=== PATIENT | male | born 1935 | race Asian ===

== ENCOUNTER 2019-03-31 07:02 | Emergency (ER) | payer OTHER, SELFPAY ==
[2019-03-31 07:10] VITALS: BP 121/66; PULSE 71; RESP 18; TEMP 36.2; O2SAT 99; BMI 20.7
--- NOTE | 2019-03-31 07:23 | ED.GENADULT ---
HPI - General Adult General Chief complaint: Syncope Stated complaint: syncope Time Seen by Provider: 03/31/19 07:09 Source: patient and family Mode of arrival: EMS Limitations: no limitations History of Present Illness HPI narrative: 83-year-old male. hypertensive. Here with his . Brought in by EMS for a syncopal episode this morning. Patient's states that this morning the patient was sitting. He stated that he felt like his blood sugar was low and needed to eat something. His made both of them some oatmeal. While he was eating his own meal patient's stated that he looked like he was unconscious. He did not fall out of his chair. He was still holding the cup that held the oatmeal. patient's stated that this happen 1 time prior last year. She stated that the determination of this was a low blood pressure. At that time he was switched from atenolol to lisinopril. No prior episodes over the past year until this morning. The patient states that he did remember the events this morning. He stated that he felt very groggy he denied headache, chest pain, palpitations or shortness of breath. He stated that he does remember sitting holding the oatmeal and the next thing he remembers was the paramedics in the house. At the time evaluation patient states that he feels fine. Related Data Allergies Allergy/AdvReac Type Severity Reaction Status Date / Time No Known Drug Allergies Allergy Verified 03/31/19 08:13 Review of Systems Constitutional Constitutional: Denies fever(s) and Denies headache(s) ENT Ears, Nose, Mouth, and Throat: Denies vertigo, Denies dizziness, Denies headache(s), Denies sinus pressure and Denies sore throat Cardiovascular Cardiovascular: Denies chest pain, Reports syncope, Denies rapid heart rate, Denies leg edema, Denies palpitations, Denies dyspnea and Denies dyspnea on exertion Respiratory Respiratory: Denies cough, Denies dyspnea and Denies dyspnea on exertion Gastrointestinal Gastrointestinal: Denies abdominal pain, Denies nausea and Denies vomiting Genitourinary Genitourinary: Denies dysuria Musculoskeletal Musculoskeletal: Denies myalgias and Denies arthralgias Integumentary/Breasts Skin/Breast: Denies lesions and Denies rash Neurologic Neurologic: Denies behavioral changes, Denies vertigo, Denies dizziness, Reports syncope and Denies headache(s) Psychiatric Psychiatric: Denies behavioral changes Endocrine Endocrine: Denies palpitations Hematologic/Lymphatic Hematologic/Lymphatic: Denies easy bleeding and Denies easy bruising Patient History Medical History Diabetes (Acute) Hypertension (Acute) Social History lives independently: Yes Smoking Status: Former smoker Exam Initial Vital Signs Initial Vital Signs: Vital Signs Temperature 97.1 F L 03/31/19 07:10 Pulse Rate 71 03/31/19 07:10 Respiratory Rate 18 03/31/19 07:10 Blood Pressure 121/66 03/31/19 07:10 Pulse Oximetry 99 03/31/19 07:10 Const General: cooperative and comfortable Limitations: mental status not altered HENMT Head: normal to inspection and normocephalic Resp Effort & Inspection: normal respiratory effort Auscultation: clear to auscultation bilaterally Cardio Rate: regular rate Rhythm: regular rhythm Pulses: radial pulses present GI Inspection: non-distended Palpation: soft Skin Lesions: no lesions Rashes: no rashes Neuro General: alert, awake and oriented x3 Cognition: normal cognition Speech: speech normal Extrem General: normal to inspection and capillary refill normal Psych Appearance: grossly normal and well kempt Scores GCS [place] coma scale eye opening: Spontaneous Luiza coma scale verbal response: Orientated [place] coma scale motor response: Obey commands [place] coma scale total score: 15 Course Orders Ordered: ED Orders 03/31/19 07:10 EKG-12 Lead Stat 03/31/19 08:05 CT head/brain wo con Stat 03/31/19 08:36 Complete Blood Count AUTO DIFF Stat Comprehensive Metabolic Panel Stat Ethanol (ETOH) Stat Lipase Stat Partial Thromboplastin Time Stat Procalcitonin Stat Prothrombin Time INR Stat Troponin I Stat Vital Signs Vital signs: Vital Signs - 8 hr 03/31/19 07:10 03/31/19 09:44 Temperature 97.1 F L Pulse Rate 71 Respiratory Rate 18 16 Blood Pressure 121/66 Pulse Oximetry 99 Medical Decision Making Lab Data Lab results reviewed: Yes I reviewed the patient's lab results. Result diagrams: 03/31/19 08:36 03/31/19 08:36 Labs: Lab Results 03/31/19 03/31/19 03/31/19 Range/Units 08:36 08:36 08:36 WBC 6.5 (4.5-11.0) X10^3/uL RBC 3.92 L (4.5-5.9) X10^6/uL Hgb 12.5 L (13.5-17.5) g/dL Hct 36.8 L (41-53) % MCV 93.8 (80-100) fL MCH 31.8 (26-34) PG MCHC 33.9 (30-36) % RDW 13.3 (11.6-14.8) % Plt Count 112 L (150-400) X10^3/uL Neut % (Auto) 78.2 H (50-75) % Lymph % (Auto) 10.1 L (25-40) % [place] % (Auto) 7.5 (3-14) % Eos % (Auto) 3.8 (2-4) % Baso % (Auto) 0.4 (0-2) % Neut # (Auto) 5100 (2495-4228) /uL Lymph # (Auto) 700 L (6130-6611) /uL [place] # (Auto) 500 (0-900) /uL Eos # (Auto) 200 (0-450) /uL Baso # (Auto) 0 (0-100) /uL PT 12.5 (10.1-12.7) SECONDS INR 1.1 (0.9-1.3) APTT 32 (26.4-36.2) SECONDS Sodium 140 (137-145) mmol/L Potassium 4.0 (3.4-5.1) mmol/L Chloride 106 (98-107) mmol/L Carbon Dioxide 26 (22-32) mmol/L BUN 23 H (9-20) mg/dL Creatinine 1.30 H (0.66-1.25) mg/dL Estimated GFR 53.0 L (>60) mL/min BUN/Creatinine Ratio 17.7 (6-22) Glucose 153 H (80-110) mg/dL Calcium 9.0 (8.4-10.2) mg/dL Total Bilirubin 0.3 (0.2-1.3) mg/dL AST 22 (17-59) IU/L ALT 16 (<50) IU/L Alkaline Phosphatase 70 (38-126) U/L Troponin I < 0.012 (0.01-0.034) ng/mL Total Protein 6.8 (6.3-8.2) g/dL Albumin 3.8 (3.5-5.0) g/dL Globulin 3.0 (1.7-4.1) g/dL Albumin/Globulin Ratio 1.3 (1.0-2.8) Lipase 116 (23-300) U/L Ethyl Alcohol < 10 ( - 10) mg/dL Imaging Data CT scan - head: Radiologist's Impression: [place] [address] CT Scan Report Signed Patient: Lauren VidaloMR#: [id number] : [id number]:[id number] Age/Sex: 83 / MDate of Service: 03/31/19 Loc: ED Accession Number: [id number] Procedure: CT head/brain wo con Ordering Provider: Mejia Villagran D.O. PROCEDURE: CT HEAD/BRAIN WO CON INDICATIONS: syncope TECHNIQUE: Noncontrast 4.5 mm thick angled axial sections acquired from the foramen magnum to the vertex, with coronal and sagittal reformats. For radiation dose reduction, the following was used: automated exposure control, adjustment of mA and/or kV according to patient size. COMPARISON: None. FINDINGS: Image quality: Excellent. CSF spaces: Basal cisterns are patent. No extra-axial fluid collections. The ventricles are symmetric in size and shape. Brain: No intracranial bleeds or masses. There is cerebral volume loss for age, with resultant ventricular and sulcal prominence. There are periventricular and deep white matter chronic small vessel ischemic changes. There is intracranial internal carotid artery and vertebral artery atherosclerosis. Skull and face: Calvarium and visualized facial bones appear intact, without suspicious lesions. Sinuses: Mild mucosal thickening noted in the right maxillary sinus. The mastoids are clear. IMPRESSION: No acute intracranial disease process. Dictated by: Erma Atkinson MD, PhD on 03/31/2019 at 8:18 Approved by: Erma Atkinson MD, PhD on 03/31/2019 at 8:19 ECG Data Attestation: I personally reviewed and interpreted this ECG as follows: Prior ECG tracings: not available for review Interpretation: Sinus rhythm Ventricular rate is 75 Normal axis Normal QRS Normal QTC Nonspecific ST T wave changes MDM Narrative Medical decision making narrative: Patient's labs are unremarkable. Nonspecific changes on the EKG. Head CT unremarkable. He ambulated around the emergency department without any problems. Unsure the exact etiology of his symptoms. His presentation is not consistent with CVA. Not consistent with TIA. Not consistent with seizure. Did consider arrhythmia however EKG is not supportive of this. No signs of intracranial hemorrhage. Potentially could have been a hypotension episode however this seems to have resolved if this was the cause. Patient's blood sugar was also unremarkable. I did discuss this with the patient and family at bedside. Informed him that he should continue to take his medications as directed. Informed him that he should contact his primary provider for follow-up. He was given return precautions. They all expressed understanding and agreement. Discharge Plan Departure Patient Disposition: Home Clinical Impression: Syncope Qualifiers: Syncope type: unspecified Qualified Code(s): R55 - Syncope and collapse Instructions: DI for Syncope in Adults (Fainting) Activity Restrictions/Additional Instructions: Continue to take all of your medications as directed. I do recommend that either today or tomorrow you contact your primary provider for a follow-up. Return to the emergency department for any new or worsening symptoms
--- NOTE | 2019-03-31 08:05 | DI.CT.S_ITS ---
PROCEDURE: CT HEAD/BRAIN WO CON INDICATIONS: syncope TECHNIQUE: Noncontrast 4.5 mm thick angled axial sections acquired from the foramen magnum to the vertex, with coronal and sagittal reformats. For radiation dose reduction, the following was used: automated exposure control, adjustment of mA and/or kV according to patient size. COMPARISON: None. FINDINGS: Image quality: Excellent. CSF spaces: Basal cisterns are patent. No extra-axial fluid collections. The ventricles are symmetric in size and shape. Brain: No intracranial bleeds or masses. There is cerebral volume loss for age, with resultant ventricular and sulcal prominence. There are periventricular and deep white matter chronic small vessel ischemic changes. There is intracranial internal carotid artery and vertebral artery atherosclerosis. Skull and face: Calvarium and visualized facial bones appear intact, without suspicious lesions. Sinuses: Mild mucosal thickening noted in the right maxillary sinus. The mastoids are clear. IMPRESSION: No acute intracranial disease process. Dictated by: Erma Atkinson MD, PhD on 03/31/2019 at 8:18 Approved by: Erma Atkinson MD, PhD on 03/31/2019 at 8:19
--- NOTE | 2019-03-31 08:44 | PC.NURSE ---
pt spouse describes the pt as him saying he didn't feel well. he was sitting at the table and she said he tightly gripped his cup, she called his name and he didn't respond. pt states he remembers telling her he didn't feel well but doesn't remember her calling his name.
[2019-03-31 08:45] LABS: Add Manual Diff / Slide Review NO; Basophils Absolute Auto 0 /uL (0-100); Basophils Percent Auto 0.4 % (0-2); Eosinophils Absolute Auto 200 /uL (0-450); Eosinophils Percent Auto 3.8 % (2-4); Hematocrit 36.8 % (41-53); Hemoglobin 12.5 g/dL (13.5-17.5); Lymphocytes Absolute Auto 700 /uL (1100-4500); Lymphocytes Percent Auto 10.1 % (25-40); Mean Corpuscular HGB Conc 33.9 % (30-36); Mean Corpuscular Hemoglobin 31.8 PG (26-34); Mean Corpuscular Volume 93.8 fL (80-100); Monocytes Absolute Auto 500 /uL (0-900); Monocytes Percent Auto 7.5 % (3-14); Neutrophils Absolute Auto 5100 /uL (1500-7000); Neutrophils Percent Auto 78.2 % (50-75); Platelet Count 112 X10^3/uL (150-400); Red Blood Cell Count 3.92 X10^6/uL (4.5-5.9); Red Cell Distribution Width 13.3 % (11.6-14.8); White Blood Cell Count 6.5 X10^3/uL (4.5-11.0)
[2019-03-31 08:50] LABS: INR 1.1 (0.9-1.3); Prothrombin Time 12.5 SECONDS (10.1-12.7)
[2019-03-31 08:53] LABS: PTT Partial Thromboplastin Tim 32 SECONDS (26.4-36.2)
[2019-03-31 08:55] LABS: Alanine Aminotransferase 16 IU/L (<50); Albumin 3.8 g/dL (3.5-5.0); Albumin Globulin Ratio 1.3 (1.0-2.8); Alkaline Phosphatase 70 U/L (38-126); Aspartate Aminotransferase 22 IU/L (17-59); BUN Creatinine Ratio 17.7 (6-22); Bilirubin Total 0.3 mg/dL (0.2-1.3); Blood Urea Nitrogen 23 mg/dL (9-20); Carbon Dioxide 26 mmol/L (22-32); Chloride 106 mmol/L (98-107); Ethanol (ETOH) < 10 mg/dL; Glucose 153 mg/dL (80-110); HEMOLYSIS < 15 (0-50); Lipase 116 U/L (23-300); Sodium 140 mmol/L (137-145); Total Protein 6.8 g/dL (6.3-8.2)
[2019-03-31 09:06] LABS: Troponin I < 0.012 ng/mL (0.01-0.034)
[2019-03-31 09:40] VITALS: BP 140/65; PULSE 82; RESP 18; O2SAT 96
[2019-03-31 09:44] VITALS: RESP 16
--- NOTE | 2019-03-31 09:44 | PC.NURSE ---
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 Pt walked with a steady gait and did not feel dizzy or like he was going to fall down. Provider aware
[2019-03-31 09:56] LABS: Procalcitonin < 0.05 ng/mL (<0.5)
[2019-03-31 10:06] VITALS: BP 107/55; PULSE 71; RESP 16; O2SAT 98
== END 2019-03-31 10:11 | disposition home or self-care (01) ==
PROVIDERS: Emergency Provider Emergency Medicine
DX: R55 Syncope and collapse (principal); I10 Essential (primary) hypertension; R07.9 Chest pain, unspecified
CPT/HCPCS: 36415; 70450; 80053; 80320; 83690; 84145; 84484; 85025; 85610; 85730; 93005; 99284; 99285

== ENCOUNTER 2022-12-06 20:14 | Inpatient (IN) | payer OTHER, SELFPAY ==
[2022-12-06] VITALS (11 sets, daily range): BP systolic 101–128; BP diastolic 57–81; PULSE 83–106; RESP 17–30; TEMP 36.6; O2SAT 95–100; BMI 22.9
--- NOTE | 2022-12-06 20:39 | DI.RAD.S_ITS ---
PROCEDURE: XR CHEST 1V INDICATIONS: chest pain TECHNIQUE: One view of the chest was acquired. COMPARISON: None. FINDINGS: Surgical changes and devices: None. Lungs and pleura: Lungs are mildly hyperlucent but clear. No pleural effusions or pneumothorax. Mediastinum: Mediastinal contours appear normal. Heart size is normal. Bones and chest wall: No suspicious bony lesions. Mild degenerative changes in the shoulders. Overlying soft tissues appear unremarkable. IMPRESSION: Portable chest within normal limits for age. Dictated by: Marichuy Blackwood M.D. on 12/06/2022 at 21:44 Approved by: Marichuy Blackwood M.D. on 12/06/2022 at 21:45
--- NOTE | 2022-12-06 20:55 | ED.GENADULT ---
HPI - General Adult General Chief complaint: Weakness Stated complaint: general malaise 24 hours Time Seen by Provider: 12/06/22 20:35 Source: patient and family Mode of arrival: EMS Limitations: no limitations History of Present Illness HPI narrative: Patient is an 87-year-old male who came by EMS for evaluation approximately 24 hours of generalized fatigue. EMS was called by the patient's family after he stated that he had gotten up to go use the restroom. He did have a bowel movement and urinated. Afterwards he became very lightheaded. He did not fall but he did call to his family to help him get onto the floor because he felt like he was going to fall. During this time he did not have a headache or chest pain or palpitations. There was no injuries from this event. He is not on blood thinners. He did have some chest discomfort earlier today that was relieved by some tea. He has not had anything to eat today because he has been having some upper abdominal pain. The upper abdominal pain has been present for the past several days potentially somewhat longer than that. He has not had much of an appetite. He is had some nausea but no vomiting. No fevers. No shortness of breath. He has been having some black colored stools off and on for the past several weeks. He denies drinking alcohol. Does take a baby aspirin. Also takes anti-inflammatories fairly regularly because of chronic muscle/joint pain. He is never had an upper endoscopy. Had a colonoscopy sometime within the past 10 years. No prior abdominal surgeries. He did receive some fluids by EMS and he states he does feel better than what he did earlier in the day but not back to normal. He is also feeling very chilled. Related Data Home Medications Medication Instructions Recorded Confirmed amlodipine 10 mg tablet 10 mg PO DAILY 03/31/19 03/31/19 aspirin 81 mg chewable tablet 81 mg PO DAILY 03/31/19 03/31/19 atorvastatin 40 mg tablet 40 mg PO DAILY 03/31/19 03/31/19 cyclobenzaprine 10 mg tablet 10 mg PO TID PRN Muscle Spasm 03/31/19 03/31/19 docusate sodium 250 mg capsule 250 mg PO DAILY 03/31/19 03/31/19 lisinopril 10 mg tablet 10 mg PO DAILY 03/31/19 03/31/19 melatonin 3 mg capsule 3 mg PO BEDTIME PRN Sleep 03/31/19 03/31/19 naproxen 250 mg tablet 250 mg PO BID PRN pain 03/31/19 03/31/19 prazosin 2 mg capsule 4 mg PO BEDTIME 03/31/19 03/31/19 Allergies Allergy/AdvReac Type Severity Reaction Status Date / Time No Known Drug Allergies Allergy Verified 03/31/19 08:13 Review of Systems Review of Systems ROS Unobtainable: All systems reviewed & are unremarkable except as noted in HPI and below Patient History Medical History Diabetes Hypertension Social History lives independently: Yes Smoking Status: Former smoker Smoking Status: Former smoker alcohol intake frequency: 0-2 drinks per day Substance Use Type: does not use Exam Initial Vital Signs Initial Vital Signs: Vital Signs Pulse Rate 87 12/06/22 20:20 Pulse Oximetry 100 12/06/22 20:20 Const General: cooperative, comfortable and No in distress HENMT Head: normal to inspection and normocephalic Resp Effort & Inspection: normal respiratory effort Auscultation: clear to auscultation bilaterally Cardio Rate: regular rate Rhythm: regular rhythm GI Inspection: normal to inspection and non-distended Palpation: soft, No firm, No guarding and tender (Mild tenderness upper abdomen) Rectal Exam: normal sphincter tone and heme positive stool Skin General: no rashes or lesions noted and pallor Neuro General: patient alert, patient awake, patient oriented x3 and moves all extremities Cognition: normal cognition Speech: speech normal Extrem General: No edema and No pedal edema Scores GCS [place] coma scale eye opening: Spontaneous [place] coma scale verbal response: Orientated [place] coma scale motor response: Obey commands [place] coma scale total score: 15 Course Orders Ordered: ED Orders 12/06/22 20:28 Complete Blood Count AUTO DIFF Stat Comprehensive Metabolic Panel Stat Lipase Stat Magnesium Stat PTT Partial Thromboplastin Erasmo Stat Prothrombin Time INR Stat Troponin & CK Cardiac Panel Stat 12/06/22 20:39 XR chest 1V Stat EKG-12 Lead Stat 12/06/22 21:34 Covid-19 + FLU A/B + RSV - PCR Stat 12/06/22 23:21 Type and Screen Stat 12/06/22 23:26 Hemoglobin and Hematocrit Stat Troponin & CK Cardiac Panel Stat 12/07/22 00:07 Packed Cells Stat 12/07/22 00:10 Consult to General Surgery Stat Discontinued Medications Acetaminophen (Acetaminophen 325 Mg Tablet) 650 mg PO NOW ONE Stop: 12/06/22 22:20 Last Admin: 12/06/22 22:40 Dose: 650 mg Documented By: KEIRY Aspirin (Aspirin 81 Mg Chew Tab) 324 mg PO NOW ONE Stop: 12/06/22 20:39 Sodium Chloride (Normal Saline 0.9%) 1,000 mls @ 500 mls/hr IV BOLUS ONE Stop: 12/06/22 22:43 Last Infusion: 12/06/22 23:00 Dose: Infused Documented By: Admin: 12/06/22 21:00 Dose: 500 mls/hr Documented By: KEIRY Pantoprazole Sodium (Pantoprazole 40 Mg Vial) 40 mg IV NOW ONE Stop: 12/06/22 22:20 Last Admin: 12/06/22 22:40 Dose: 40 mg Documented By: KEIRY Vital Signs Vital signs: Vital Signs - 8 hr 12/06/22 20:20 12/06/22 20:30 12/06/22 20:30 Temperature Pulse Rate 87 85 Respiratory Rate Blood Pressure 118/67 Pulse Oximetry 100 99 Oxygen Delivery Method 12/06/22 20:32 12/06/22 21:00 12/06/22 21:00 Temperature 98 F Pulse Rate 87 89 Respiratory Rate 20 21 Blood Pressure 111/58 L 104/58 L Pulse Oximetry 100 98 Oxygen Delivery Method Room Air 12/06/22 21:30 12/06/22 21:30 12/06/22 22:00 Temperature Pulse Rate 83 Respiratory Rate 17 Blood Pressure 128/58 L 118/57 L Pulse Oximetry 98 Oxygen Delivery Method 12/06/22 22:00 12/06/22 22:30 12/06/22 22:30 Temperature Pulse Rate 85 85 Respiratory Rate 19 17 Blood Pressure 125/60 Pulse Oximetry 99 98 Oxygen Delivery Method 12/06/22 23:00 12/06/22 23:01 12/06/22 23:30 Temperature Pulse Rate 102 H 103 H Respiratory Rate 30 H 28 H Blood Pressure 104/74 Pulse Oximetry 100 98 Oxygen Delivery Method 12/06/22 23:31 12/06/22 23:31 12/07/22 00:00 Temperature Pulse Rate 106 H 101 H Respiratory Rate 22 24 Blood Pressure 101/81 Pulse Oximetry 95 99 Oxygen Delivery Method 12/07/22 00:00 Temperature Pulse Rate Respiratory Rate Blood Pressure 107/59 L Pulse Oximetry Oxygen Delivery Method Medical Decision Making Medical Records Medical records reviewed: Yes I reviewed the patient's medical records. Lab Data Lab results reviewed: Yes I reviewed the patient's lab results. 12/06/22 23:26 12/06/22 20:28 Labs: Lab Results 12/06/22 12/06/22 12/06/22 Range/Units 20:28 21:34 23:21 WBC 6.1 (4.5-11.0) X10^3/uL RBC 2.48 L (4.5-5.9) X10^6/uL Hgb 7.6 L (13.5-17.5) g/dL Hct 23.2 L (41-53) % MCV 93.6 (80-100) fL MCH 30.8 (26-34) PG MCHC 32.9 (30-36) % RDW 13.5 (11.6-14.8) % Plt Count 102 L (150-400) X10^3/uL Neut % (Auto) 83.1 H (50-75) % Lymph % (Auto) 9.8 L (25-40) % [place] % (Auto) 6.8 (3-14) % Eos % (Auto) 0.2 L (2-4) % Baso % (Auto) 0.1 (0-2) % Neut # (Auto) 5100 (6441-3701) /uL Lymph # (Auto) 600 L (5841-2261) /uL [place] # (Auto) 400 (0-900) /uL Eos # (Auto) 0 (0-450) /uL Baso # (Auto) 0 (0-100) /uL PT 14.3 H (10.1-12.7) SECONDS INR 1.2 (0.9-1.3) APTT 29 (26-36) SECONDS Sodium 139 (137-145) mmol/L Potassium 4.8 (3.4-5.1) mmol/L Chloride 107 (98-107) mmol/L Carbon Dioxide 22 (22-32) mmol/L BUN 98 H (9-20) mg/dL Creatinine 1.81 H (0.66-1.25) mg/dL Estimated GFR 36 L (>60) mL/min BUN/Creatinine Ratio 54.1 H (6-22) Glucose 125 H (80-110) mg/dL Calcium 8.9 (8.4-10.2) mg/dL Magnesium 2.1 (1.6-2.3) mg/dL Total Bilirubin 0.2 (0.2-1.3) mg/dL AST 21 (17-59) IU/L ALT 23 (<50) IU/L Alkaline Phosphatase 36 L (38-126) U/L Total Creatine Kinase 66 (55-170) U/L Troponin I 0.017 (0.01-0.034) ng/mL Total Protein 5.2 L (6.3-8.2) g/dL Albumin 2.8 L (3.5-5.0) g/dL Globulin 2.4 (1.7-4.1) g/dL Albumin/Globulin Ratio 1.2 (1.0-2.8) Lipase 67 (23-300) U/L SARS-CoV-2 (PCR) Negative (Negative) Influenza A (RT-PCR) Flu a negative (NEGATIVE) Influenza B (RT-PCR) Flu b negative (NEGATIVE) RSV (PCR) Negative (Negative) Blood Type O Positive Antibody Screen Negative Crossmatch See Detail 12/06/22 Range/Units 23:26 WBC (4.5-11.0) X10^3/uL RBC (4.5-5.9) X10^6/uL Hgb 6.9 L* (13.5-17.5) g/dL Hct 20.5 L* (41-53) % MCV (80-100) fL MCH (26-34) PG MCHC (30-36) % RDW (11.6-14.8) % Plt Count (150-400) X10^3/uL Neut % (Auto) (50-75) % Lymph % (Auto) (25-40) % [place] % (Auto) (3-14) % Eos % (Auto) (2-4) % Baso % (Auto) (0-2) % Neut # (Auto) (0614-1661) /uL Lymph # (Auto) (9145-6064) /uL [place] # (Auto) (0-900) /uL Eos # (Auto) (0-450) /uL Baso # (Auto) (0-100) /uL PT (10.1-12.7) SECONDS INR (0.9-1.3) APTT (26-36) SECONDS Sodium (137-145) mmol/L Potassium (3.4-5.1) mmol/L Chloride (98-107) mmol/L Carbon Dioxide (22-32) mmol/L BUN (9-20) mg/dL Creatinine (0.66-1.25) mg/dL Estimated GFR (>60) mL/min BUN/Creatinine Ratio (6-22) Glucose (80-110) mg/dL Calcium (8.4-10.2) mg/dL Magnesium (1.6-2.3) mg/dL Total Bilirubin (0.2-1.3) mg/dL AST (17-59) IU/L ALT (<50) IU/L Alkaline Phosphatase (38-126) U/L Total Creatine Kinase 63 (55-170) U/L Troponin I 0.019 (0.01-0.034) ng/mL Total Protein (6.3-8.2) g/dL Albumin (3.5-5.0) g/dL Globulin (1.7-4.1) g/dL Albumin/Globulin Ratio (1.0-2.8) Lipase (23-300) U/L SARS-CoV-2 (PCR) (Negative) Influenza A (RT-PCR) (NEGATIVE) Influenza B (RT-PCR) (NEGATIVE) RSV (PCR) (Negative) Blood Type Antibody Screen Crossmatch Point of Care Testing Stool Occult Blood Positive Point of care testing: Point of Care Testing Stool Occult Blood Positive Imaging Data Chest x-ray: Radiologist's Impression: PROCEDURE: XR CHEST 1V INDICATIONS: chest pain TECHNIQUE: One view of the chest was acquired. COMPARISON: None. FINDINGS: Surgical changes and devices: None. Lungs and pleura: Lungs are mildly hyperlucent but clear. No pleural effusions or pneumothorax. Mediastinum: Mediastinal contours appear normal. Heart size is normal. Bones and chest wall: No suspicious bony lesions. Mild degenerative changes in the shoulders. Overlying soft tissues appear unremarkable. IMPRESSION: Portable chest within normal limits for age. ECG Data Attestation: I personally reviewed and interpreted this ECG as follows: Interpretation: Sinus rhythm Ventricular rate 84 Normal axis Normal QRS Normal QTC No ST T wave changes MDM Narrative Medical decision making narrative: Patient was somewhat pale upon arrival. Initially was not tachycardic but this did develop while he was here. He did not have any melena or bowel movements since being here in the ER. His initial H&H was anemic and a repeat shows decrease in this. I discussed with him in his family at bedside the risks and benefits of a blood transfusion and I advised that we do started blood transfusion based on his labs. He expressed understanding and agreement with this. He was Hemoccult positive. Had steve black stool. With his upper abdominal discomfort I have some concern about an upper GI bleed. He was given Protonix. I did discuss the case with Dr. Zuleta on-call with General surgery who recommended admission to the medicine service and prep overnight in anticipation of upper endoscopy and colonoscopy within the next 24 hours. I then discussed the case with Dr. Hung hospitalist on-call who will admit. I did discuss the need for admission with the patient in the family. They expressed understanding agreement as well. Discharge Plan Departure Patient Disposition: Admitted As Inpatient Clinical Impression: Acute upper GI bleed, Anemia, Malaise Admit Date/Time: 12/07/22 00:21 Admit Provider: Ron Hung
[2022-12-06 20:56] LABS: Add Manual Diff / Slide Review NO; Basophils Absolute Auto 0 /uL (0-100); Basophils Percent Auto 0.1 % (0-2); Eosinophils Absolute Auto 0 /uL (0-450); Eosinophils Percent Auto 0.2 % (2-4); Hematocrit 23.2 % (41-53); Hemoglobin 7.6 g/dL (13.5-17.5); Lymphocytes Absolute Auto 600 /uL (1100-4500); Lymphocytes Percent Auto 9.8 % (25-40); Mean Corpuscular HGB Conc 32.9 % (30-36); Mean Corpuscular Hemoglobin 30.8 PG (26-34); Mean Corpuscular Volume 93.6 fL (80-100); Monocytes Absolute Auto 400 /uL (0-900); Monocytes Percent Auto 6.8 % (3-14); Neutrophils Absolute Auto 5100 /uL (1500-7000); Neutrophils Percent Auto 83.1 % (50-75); Platelet Count 102 X10^3/uL (150-400); Red Blood Cell Count 2.48 X10^6/uL (4.5-5.9); Red Cell Distribution Width 13.5 % (11.6-14.8); White Blood Cell Count 6.1 X10^3/uL (4.5-11.0)
[2022-12-06 20:59] LABS: INR 1.2 (0.9-1.3); Prothrombin Time 14.3 SECONDS (10.1-12.7)
[2022-12-06] MEDS: SODIUM CHLORIDE 0.9% 1,000 ML 500 ML IV (21:00)
[2022-12-06 21:01] LABS: PTT Partial Thromboplastin Tim 29 SECONDS (26-36)
[2022-12-06 21:02] LABS: Alanine Aminotransferase 23 IU/L (<50); Albumin 2.8 g/dL (3.5-5.0); Albumin Globulin Ratio 1.2 (1.0-2.8); Alkaline Phosphatase 36 U/L (38-126); Aspartate Aminotransferase 21 IU/L (17-59); BUN Creatinine Ratio 54.1 (6-22); Bilirubin Total 0.2 mg/dL (0.2-1.3); Blood Urea Nitrogen 98 mg/dL (9-20); Calcium 8.9 mg/dL (8.4-10.2); Carbon Dioxide 22 mmol/L (22-32); Chloride 107 mmol/L (98-107); Creatine Kinase 66 U/L (55-170); Estimated Glomerular Filt Rate 36 mL/min (>60); Globulin 2.4 g/dL (1.7-4.1); Glucose 125 mg/dL (80-110); HEMOLYSIS < 15 (0-50); Lipase 67 U/L (23-300); Magnesium 2.1 mg/dL (1.6-2.3); Potassium 4.8 mmol/L (3.4-5.1); Sodium 139 mmol/L (137-145); Total Protein 5.2 g/dL (6.3-8.2)
[2022-12-06 21:13] LABS: Troponin I 0.017 ng/mL (0.01-0.034)
[2022-12-06 22:18] LABS: Influenza A - CEPHEID Flu A NEGATIVE (NEGATIVE); Influenza B - CEPHEID Flu B NEGATIVE (NEGATIVE); Respiratory Syncytial Virus Negative (Negative)
[2022-12-06 22:24] LABS: COVID-19 CEPHEID 4-PLEX PCR Negative (Negative)
[2022-12-06] MEDS: ACETAMINOPHEN 325 MG TABLET 650 MG PO (22:40)
[2022-12-06] MEDS: PANTOPRAZOLE 40 MG VIAL IV (22:40)
[2022-12-06 23:34] LABS: Hematocrit 20.5 % (41-53); Hemoglobin 6.9 g/dL (13.5-17.5)
[2022-12-06 23:38] LABS: Creatine Kinase 63 U/L (55-170)
[2022-12-06 23:51] LABS: Troponin I 0.019 ng/mL (0.01-0.034)
[2022-12-07] VITALS (16 sets, daily range): BP systolic 107–139; BP diastolic 52–64; PULSE 77–105; RESP 16–24; TEMP 36.3–37.6; O2SAT 97–100; BMI 22.9
--- NOTE | 2022-12-07 02:34 | PM.HP.1 ---
History of Present Illness History of Present Illness Chief complaint: general malaise 24 hours Narrative: 87 years old male with history of hypertension, hyperlipidemia, CAD, osteoarthritis presented to the ER with generalized weakness and fatigue in the last 2 days. The patient was in the bathroom when he felt very lightheaded but did not fall. The patient denies any chest pain, palpitations or any injury. Denies any hematemesis, melena, fever, shortness of breath. He reports some black color stools on and off for the last several weeks. Take baby aspirin. Denies any alcohol but does use NSAIDs on regular basis for chronic muscle and joint pain. Reports colonoscopy 5 years ago but never had any EGD. In the ER he was found to be quite anemic with guaiac positive. Surgery was contacted and recommended keep the patient n.p.o. and prep for colonoscopy and EGD in the morning. Laboratory shows H&H 6.9 and 20.5, platelets 102, WBC 6.1, creatinine 1.81, blood sugar 125, chest x-ray unremarkable. [facility] Medical History (Updated 12/07/22 @ 03:31 by Ron Hung MD) Diabetes Hypertension Social History household members: spouse and family lives independently: Yes Smoking Status: Former smoker Meds Home Medications and Allergies Home Medications Medication Instructions Recorded Confirmed Type amlodipine 10 mg tablet 10 mg PO DAILY 03/31/19 12/07/22 History aspirin 81 mg chewable tablet 81 mg PO DAILY 03/31/19 12/07/22 History atorvastatin 40 mg tablet 40 mg PO DAILY 03/31/19 12/07/22 History cyclobenzaprine 10 mg tablet 10 mg PO TID PRN Muscle Spasm 03/31/19 03/31/19 History docusate sodium 250 mg capsule 250 mg PO DAILY 03/31/19 03/31/19 History lisinopril 10 mg tablet 10 mg PO DAILY 03/31/19 12/07/22 History melatonin 3 mg capsule 3 mg PO BEDTIME PRN Sleep 03/31/19 12/07/22 History naproxen 250 mg tablet 250 mg PO BID PRN pain 03/31/19 12/07/22 History prazosin 2 mg capsule 4 mg PO BEDTIME 03/31/19 12/07/22 History Allergies Allergy/AdvReac Type Severity Reaction Status Date / Time No Known Drug Allergies Allergy Verified 03/31/19 08:13 Review of Systems Review of Systems ROS: Yes All systems reviewed with the patient and are negative except as otherwise documented Constitutional Constitutional: Reports as per HPI and Reports system reviewed and no additional complaints, except as documented Eyes Eyes: Reports as per HPI and Reports system reviewed and no additional complaints, except as documented ENT Ears, Nose, Mouth, and Throat: Yes as per HPI and Yes system reviewed and no additional complaints, except as documented Cardiovascular Cardiovascular: Reports system reviewed and no additional complaints, except as documented Respiratory Respiratory: Reports system reviewed and no additional complaints, except as documented Gastrointestinal Gastrointestinal: Reports system reviewed and no additional complaints, except as documented Genitourinary Genitourinary: Reports system reviewed and no additional complaints, except as documented Musculoskeletal Musculoskeletal: Reports system reviewed and no additional complaints, except as documented, Reports abnormal gait and Reports numbness Neurologic Neurologic: Reports system reviewed and no additional complaints, except as documented, Reports abnormal gait, Reports confusion and Reports numbness Psychiatric Psychiatric: Reports system reviewed and no additional complaints, except as documented and Reports confusion Exam Vital Signs (past 8 hours): - 12/06/22 20:20 12/06/22 20:30 12/06/22 20:30 Temperature Pulse Rate 87 85 Respiratory Rate Blood Pressure 118/67 Pulse Oximetry 100 99 Oxygen Delivery Method Oxygen Flow Rate 12/06/22 20:32 12/06/22 21:00 12/06/22 21:00 Temperature 98 F Pulse Rate 87 89 Respiratory Rate 20 21 Blood Pressure 111/58 L 104/58 L Pulse Oximetry 100 98 Oxygen Delivery Method Room Air Oxygen Flow Rate 12/06/22 21:30 12/06/22 21:30 12/06/22 22:00 Temperature Pulse Rate 83 Respiratory Rate 17 Blood Pressure 128/58 L 118/57 L Pulse Oximetry 98 Oxygen Delivery Method Oxygen Flow Rate 12/06/22 22:00 12/06/22 22:30 12/06/22 22:30 Temperature Pulse Rate 85 85 Respiratory Rate 19 17 Blood Pressure 125/60 Pulse Oximetry 99 98 Oxygen Delivery Method Oxygen Flow Rate 12/06/22 23:00 12/06/22 23:01 12/06/22 23:30 Temperature Pulse Rate 102 H 103 H Respiratory Rate 30 H 28 H Blood Pressure 104/74 Pulse Oximetry 100 98 Oxygen Delivery Method Oxygen Flow Rate 12/06/22 23:31 12/06/22 23:31 12/07/22 00:00 Temperature Pulse Rate 106 H 101 H Respiratory Rate 22 24 Blood Pressure 101/81 Pulse Oximetry 95 99 Oxygen Delivery Method Oxygen Flow Rate 12/07/22 00:00 12/07/22 00:30 12/07/22 00:30 Temperature Pulse Rate 105 H Respiratory Rate 24 Blood Pressure 107/59 L 118/64 Pulse Oximetry 98 Oxygen Delivery Method Oxygen Flow Rate 12/07/22 00:56 12/07/22 00:57 12/07/22 00:57 Temperature Pulse Rate 99 H 95 H Respiratory Rate 22 24 Blood Pressure 115/59 L Pulse Oximetry 100 100 Oxygen Delivery Method Oxygen Flow Rate 12/07/22 00:58 12/07/22 00:58 12/07/22 01:00 Temperature 99.2 F 99.2 F Pulse Rate 99 H 93 H Respiratory Rate 22 22 Blood Pressure 115/59 L Pulse Oximetry 100 Oxygen Delivery Method Oxygen Flow Rate 12/07/22 01:00 12/07/22 01:15 12/07/22 01:15 Temperature 99.5 F Pulse Rate 92 H 96 H Respiratory Rate 20 21 Blood Pressure 118/56 L 0123/55 H Pulse Oximetry 100 Oxygen Delivery Method Oxygen Flow Rate 12/07/22 01:15 12/07/22 01:59 Temperature 98.9 F Pulse Rate 100 H Respiratory Rate 17 Blood Pressure 123/55 L 128/59 L Pulse Oximetry 99 Oxygen Delivery Method Oxygen Flow Rate 0 Oxygen Delivery Method Room Air Oxygen Flow Rate 0 Const General: cooperative, comfortable and well developed Orientation: alert and oriented x3 HENMT Head: normal to inspection, normocephalic and atraumatic Face and sinus: normal facial exam Mouth: oral mucosae normal and moist mucous membranes Throat: posterior oropharynx normal Eyes General: appearance normal, both eyes and all related structures Pupils: PERRL EOM: EOM intact bilaterally Neck Neck: normal visual inspection and full ROM Chest Chest: normal inspection of the chest Resp Effort & Inspection: normal respiratory effort and able to speak in complete sentences Auscultation: clear to auscultation bilaterally Cardio Palpation: normal PMI Rate: regular rate Rhythm: regular rhythm Heart Sounds: S1 normal and S2 normal GI Inspection: normal to inspection Palpation: soft and no hepatosplenomegaly Auscultation: normal bowel sounds Skin General: no rashes or lesions noted Lesions: no lesions Rashes: no rashes Trauma: no lacerations or abrasions Neuro General: patient alert, patient awake, patient oriented x3 and no focal motor deficits Cranial Nerves: CN's II-XI intact bilaterally Cognition: normal cognition Speech: speech normal Gait: normal gait Motor: muscle tone normal throughout Sensory Exam: no sensory deficits noted Extrem General: full ROM and no calf tenderness Psych Appearance: grossly normal Mental Status: mental status grossly normal Speech and Movement: speech and movement normal Objective Labs 12/06/22 23:26 12/06/22 20:28 Labs: Laboratory Results - last 24 hr 12/06/22 12/06/22 12/06/22 20:28 21:34 23:21 WBC 6.1 RBC 2.48 L Hgb 7.6 L Hct 23.2 L MCV 93.6 MCH 30.8 MCHC 32.9 RDW 13.5 Plt Count 102 L Neut % (Auto) 83.1 H Lymph % (Auto) 9.8 L [place] % (Auto) 6.8 Eos % (Auto) 0.2 L Baso % (Auto) 0.1 Neut # (Auto) 5100 Lymph # (Auto) 600 L [place] # (Auto) 400 Eos # (Auto) 0 Baso # (Auto) 0 PT 14.3 H INR 1.2 APTT 29 Sodium 139 Potassium 4.8 Chloride 107 Carbon Dioxide 22 BUN 98 H Creatinine 1.81 H Estimated GFR 36 L BUN/Creatinine Ratio 54.1 H Glucose 125 H Calcium 8.9 Magnesium 2.1 Total Bilirubin 0.2 AST 21 ALT 23 Alkaline Phosphatase 36 L Total Creatine Kinase 66 Troponin I 0.017 Total Protein 5.2 L Albumin 2.8 L Globulin 2.4 Albumin/Globulin Ratio 1.2 Lipase 67 SARS-CoV-2 (PCR) Negative Influenza A (RT-PCR) Flu a negative Influenza B (RT-PCR) Flu b negative RSV (PCR) Negative Blood Type O Positive Antibody Screen Negative Crossmatch See Detail 12/06/22 23:26 WBC RBC Hgb 6.9 L* Hct 20.5 L* MCV MCH MCHC RDW Plt Count Neut % (Auto) Lymph % (Auto) [place] % (Auto) Eos % (Auto) Baso % (Auto) Neut # (Auto) Lymph # (Auto) [place] # (Auto) Eos # (Auto) Baso # (Auto) PT INR APTT Sodium Potassium Chloride Carbon Dioxide BUN Creatinine Estimated GFR BUN/Creatinine Ratio Glucose Calcium Magnesium Total Bilirubin AST ALT Alkaline Phosphatase Total Creatine Kinase 63 Troponin I 0.019 Total Protein Albumin Globulin Albumin/Globulin Ratio Lipase SARS-CoV-2 (PCR) Influenza A (RT-PCR) Influenza B (RT-PCR) RSV (PCR) Blood Type Antibody Screen Crossmatch Assessment & Plan Assessment and plan (1) Anemia: Status: Acute Plan: Acute blood loss anemia -Blood transfusion with PRBC to keep hemoglobin over 7, type and cross (2) Acute upper GI bleed: Status: Acute Plan: N.p.o. Protonix 40 mg IV twice daily Monitor H&H Surgery consult for colonoscopy and EGD [facility] for prep Hold aspirin and any NSAID (3) Hypertension: Status: Acute Plan: Hold any antihypertension medications for now Time Spent With Patient Time with patient: 50 to 69 minutes with 50% spent counseling/coordinating care Quality VTE Deep Vein Thrombosis/Pulmonary Embolism Present on Admission: No MIPS - Admit I confirm the patient?s Advance Care Plan is present, Code status is documented, Surrogate decision maker is in patient?s record [If Yes, STOP here]: Yes MIPS - Meds 'Current medications' to include all prescriptions, [id number] products, herbals, cannabis/cannabidiol products, and vitamin/mineral/dietary (nutritional) supplements. I have utilized all available resources to obtain, update, or review the patient?s current medications. [If Yes, STOP here]: Yes
[2022-12-07] MEDS: PEG3350/SOD SULF,BICARB,CL/KCL 4,000 ML SOLUTION 4000 ML PO (03:24)
[2022-12-07] MEDS: SODIUM CHLORIDE 0.9% 1,000 ML 100 ML IV ×2 (03:44→15:07)
[2022-12-07 05:19] LABS: Hematocrit 22.6 % (41-53); Hemoglobin 7.4 g/dL (13.5-17.5)
--- NOTE | 2022-12-07 08:03 | P.HP_ITS ---
History of Present Illness History of Present Illness Chief complaint: general malaise 24 hours Narrative: 87 years old male with history of hypertension, hyperlipidemia, CAD, osteoarthritis presented to the ER with generalized weakness and fatigue in the last 2 days. The patient was in the bathroom when he felt very lightheaded but did not fall. The patient denies any chest pain, palpitations or any injury. Denies any hematemesis, melena, fever, shortness of breath. He reports some black color stools on and off for the last several weeks. Take baby aspirin. Denies any alcohol but does use NSAIDs on regular basis for chronic muscle and joint pain. Reports colonoscopy 5 years ago but never had any EGD. In the ER he was found to be quite anemic with guaiac positive. Surgery was contacted and recommended keep the patient n.p.o. and prep for colonoscopy and EGD in the morning. Laboratory shows H&H 6.9 and 20.5, platelets 102, WBC 6.1, creatinine 1.81, blood sugar 125, chest x-ray unremarkable. [facility] Medical History Diabetes Hypertension Social History household members: spouse and family lives independently: Yes Smoking Status: Former smoker Meds Home Medications and Allergies Home Medications Medication Instructions Recorded Confirmed Type amlodipine 10 mg tablet 10 mg PO DAILY 03/31/19 12/07/22 History aspirin 81 mg chewable tablet 81 mg PO DAILY 03/31/19 12/07/22 History atorvastatin 40 mg tablet 40 mg PO DAILY 03/31/19 12/07/22 History cyclobenzaprine 10 mg tablet 10 mg PO TID PRN Muscle Spasm 03/31/19 12/07/22 History docusate sodium 250 mg capsule 250 mg PO DAILY 03/31/19 12/07/22 History lisinopril 10 mg tablet 10 mg PO DAILY 03/31/19 12/07/22 History melatonin 3 mg capsule 3 mg PO BEDTIME PRN Sleep 03/31/19 12/07/22 History naproxen 250 mg tablet 250 mg PO BID PRN pain 03/31/19 12/07/22 History prazosin 2 mg capsule 4 mg PO BEDTIME 03/31/19 12/07/22 History Allergies Allergy/AdvReac Type Severity Reaction Status Date / Time No Known Drug Allergies Allergy Verified 03/31/19 08:13 Review of Systems Review of Systems ROS: Yes All systems reviewed with the patient and are negative except as otherwise documented Constitutional Constitutional: Reports as per HPI and Reports system reviewed and no additional complaints, except as documented Eyes Eyes: Reports as per HPI and Reports system reviewed and no additional complaints, except as documented ENT Ears, Nose, Mouth, and Throat: Yes as per HPI and Yes system reviewed and no additional complaints, except as documented Cardiovascular Cardiovascular: Reports system reviewed and no additional complaints, except as documented Respiratory Respiratory: Reports system reviewed and no additional complaints, except as documented Gastrointestinal Gastrointestinal: Reports system reviewed and no additional complaints, except as documented Genitourinary Genitourinary: Reports system reviewed and no additional complaints, except as documented Musculoskeletal Musculoskeletal: Reports system reviewed and no additional complaints, except as documented, Reports abnormal gait and Reports numbness Neurologic Neurologic: Reports system reviewed and no additional complaints, except as documented, Reports abnormal gait, Reports confusion and Reports numbness Psychiatric Psychiatric: Reports system reviewed and no additional complaints, except as documented and Reports confusion Exam Vital Signs (past 8 hours): - 12/07/22 00:30 12/07/22 00:30 12/07/22 00:56 Temperature Pulse Rate 105 H 99 H Respiratory Rate 24 22 Blood Pressure 118/64 Pulse Oximetry 98 100 Oxygen Flow Rate 12/07/22 00:57 12/07/22 00:57 12/07/22 00:58 Temperature 99.2 F Pulse Rate 95 H Respiratory Rate 24 Blood Pressure 115/59 L Pulse Oximetry 100 Oxygen Flow Rate 12/07/22 00:58 12/07/22 01:00 12/07/22 01:00 Temperature 99.2 F Pulse Rate 99 H 93 H Respiratory Rate 22 22 Blood Pressure 115/59 L 118/56 L Pulse Oximetry 100 Oxygen Flow Rate 12/07/22 01:15 12/07/22 01:15 12/07/22 01:15 Temperature 99.5 F Pulse Rate 92 H 96 H Respiratory Rate 20 21 Blood Pressure 0123/55 H 123/55 L Pulse Oximetry 100 Oxygen Flow Rate 12/07/22 01:59 12/07/22 04:15 12/07/22 04:33 Temperature 98.9 F 99.7 F H 99.7 F H Pulse Rate 100 H 93 H 93 H Respiratory Rate 17 17 17 Blood Pressure 128/59 L 132/59 L 132/59 L Pulse Oximetry 99 100 Oxygen Flow Rate 0 0 Oxygen Delivery Method Room Air Oxygen Flow Rate 0 Const General: cooperative, comfortable and well developed Orientation: alert and oriented x3 [facility] Head: normal to inspection, normocephalic and atraumatic Face and sinus: normal facial exam Mouth: oral mucosae normal and moist mucous membranes Throat: posterior oropharynx normal Eyes General: appearance normal, both eyes and all related structures Pupils: PERRL EOM: EOM intact bilaterally Neck Neck: normal visual inspection and full ROM Chest Chest: normal inspection of the chest Resp Effort & Inspection: normal respiratory effort and able to speak in complete sentences Auscultation: clear to auscultation bilaterally Cardio Palpation: normal PMI Rate: regular rate Rhythm: regular rhythm Heart Sounds: S1 normal and S2 normal GI Inspection: normal to inspection Palpation: soft and no hepatosplenomegaly Auscultation: normal bowel sounds Skin General: no rashes or lesions noted Lesions: no lesions Rashes: no rashes Trauma: no lacerations or abrasions Neuro General: patient alert, patient awake, patient oriented x3 and no focal motor deficits Cranial Nerves: CN's II-XI intact bilaterally Cognition: normal cognition Speech: speech normal Gait: normal gait Motor: muscle tone normal throughout Sensory Exam: no sensory deficits noted Extrem General: full ROM and no calf tenderness Psych Appearance: grossly normal Mental Status: mental status grossly normal Speech and Movement: speech and movement normal Objective Labs 12/07/22 05:00 12/06/22 20:28 Labs: Laboratory Results - last 24 hr 12/06/22 12/06/22 12/06/22 20:28 21:34 23:21 WBC 6.1 RBC 2.48 L Hgb 7.6 L Hct 23.2 L MCV 93.6 MCH 30.8 MCHC 32.9 RDW 13.5 Plt Count 102 L Neut % (Auto) 83.1 H Lymph % (Auto) 9.8 L [place] % (Auto) 6.8 Eos % (Auto) 0.2 L Baso % (Auto) 0.1 Neut # (Auto) 5100 Lymph # (Auto) 600 L [place] # (Auto) 400 Eos # (Auto) 0 Baso # (Auto) 0 PT 14.3 H INR 1.2 APTT 29 Sodium 139 Potassium 4.8 Chloride 107 Carbon Dioxide 22 BUN 98 H Creatinine 1.81 H Estimated GFR 36 L BUN/Creatinine Ratio 54.1 H Glucose 125 H Calcium 8.9 Magnesium 2.1 Total Bilirubin 0.2 AST 21 ALT 23 Alkaline Phosphatase 36 L Total Creatine Kinase 66 Troponin I 0.017 Total Protein 5.2 L Albumin 2.8 L Globulin 2.4 Albumin/Globulin Ratio 1.2 Lipase 67 SARS-CoV-2 (PCR) Negative Influenza A (RT-PCR) Flu a negative Influenza B (RT-PCR) Flu b negative RSV (PCR) Negative Blood Type O Positive Antibody Screen Negative Crossmatch See Detail 12/06/22 12/07/22 23:26 05:00 WBC RBC Hgb 6.9 L* 7.4 L Hct 20.5 L* 22.6 L MCV MCH MCHC RDW Plt Count Neut % (Auto) Lymph % (Auto) [place] % (Auto) Eos % (Auto) Baso % (Auto) Neut # (Auto) Lymph # (Auto) [place] # (Auto) Eos # (Auto) Baso # (Auto) PT INR APTT Sodium Potassium Chloride Carbon Dioxide BUN Creatinine Estimated GFR BUN/Creatinine Ratio Glucose Calcium Magnesium Total Bilirubin AST ALT Alkaline Phosphatase Total Creatine Kinase 63 Troponin I 0.019 Total Protein Albumin Globulin Albumin/Globulin Ratio Lipase SARS-CoV-2 (PCR) Influenza A (RT-PCR) Influenza B (RT-PCR) RSV (PCR) Blood Type Antibody Screen Crossmatch Assessment & Plan Assessment and plan (1) Anemia: Status: Acute Plan: Acute blood loss anemia -Blood transfusion given with PRBC to keep hemoglobin over 7, type and cross -Hgb improved to 7.4 from 6.9 (2) Acute upper GI bleed: Status: Acute Plan: Likely due to chronic naproxen use for years N.p.o. Protonix 40 mg IV twice daily Monitor H&H Surgery consult for colonoscopy and EGD on 12/08 [place] for prep Hold aspirin and any NSAID (3) Hypertension: Status: Acute Plan: Hold any antihypertension medications for now Plan Dispo: Pending scopes. 1-2 days. Time Spent With Patient Time with patient: 50 to 69 minutes with 50% spent counseling/coordinating care Quality VTE Deep Vein Thrombosis/Pulmonary Embolism Present on Admission: No
[2022-12-07] MEDS: PANTOPRAZOLE 40 MG VIAL IV ×2 (08:26→21:01)
--- NOTE | 2022-12-07 11:55 | P.CONS_ITS ---
History of Present Illness Consult details Date Patient Seen: 12/07/22 Time Patient Seen: 11:55 Chief complaint: general malaise 24 hours Reason for consult: Anemia and GI bleed Requesting provider: Mejia Villagran Narrative: Presented for weakness and reported dark stools. Does not recall his last colonoscopy. No complaints of abdominal pain. Meds Home Medications and Allergies Home Medications Medication Instructions Recorded Confirmed Type amlodipine 10 mg tablet 10 mg PO DAILY 03/31/19 12/07/22 History aspirin 81 mg chewable tablet 81 mg PO DAILY 03/31/19 12/07/22 History atorvastatin 40 mg tablet 40 mg PO DAILY 03/31/19 12/07/22 History cyclobenzaprine 10 mg tablet 10 mg PO TID PRN Muscle Spasm 03/31/19 12/07/22 History docusate sodium 250 mg capsule 250 mg PO DAILY 03/31/19 12/07/22 History lisinopril 10 mg tablet 10 mg PO DAILY 03/31/19 12/07/22 History melatonin 3 mg capsule 3 mg PO BEDTIME PRN Sleep 03/31/19 12/07/22 History naproxen 250 mg tablet 250 mg PO BID PRN pain 03/31/19 12/07/22 History prazosin 2 mg capsule 4 mg PO BEDTIME 03/31/19 12/07/22 History Allergies Allergy/AdvReac Type Severity Reaction Status Date / Time No Known Drug Allergies Allergy Verified 03/31/19 08:13 Review of Systems Review of Systems ROS: Yes All systems reviewed with the patient and are negative except as otherwise documented Exam Vital Signs (past 8 hours): - 12/07/22 04:15 12/07/22 04:33 12/07/22 08:18 Temperature 99.7 F H 99.7 F H 97.6 F Pulse Rate 93 H 93 H 83 Respiratory Rate 17 17 18 Blood Pressure 132/59 L 132/59 L 121/58 L Pulse Oximetry 100 99 Oxygen Flow Rate 0 0 Oxygen Delivery Method Room Air Oxygen Flow Rate 0 Const General: cooperative and frail appearing Nutritional Appearance: average body habitus HENMT Head: normocephalic and atraumatic Eyes Sclera: sclerae normal Neck Neck: trachea midline Resp Effort & Inspection: normal respiratory effort and able to speak in complete sentences Cardio Rate: regular rate Rhythm: regular rhythm GI Inspection: no obesity Palpation: soft and No guarding Skin General: atrophy Neuro General: patient alert, patient awake and patient oriented x3 Cognition: normal cognition Psych Mental Status: mental status grossly normal Judgment: judgment good Objective Labs 12/07/22 05:00 12/06/22 20:28 Labs: Laboratory Results - last 24 hr 12/06/22 12/06/22 12/06/22 20:28 21:34 23:21 WBC 6.1 RBC 2.48 L Hgb 7.6 L Hct 23.2 L MCV 93.6 MCH 30.8 MCHC 32.9 RDW 13.5 Plt Count 102 L Neut % (Auto) 83.1 H Lymph % (Auto) 9.8 L [place] % (Auto) 6.8 Eos % (Auto) 0.2 L Baso % (Auto) 0.1 Neut # (Auto) 5100 Lymph # (Auto) 600 L [place] # (Auto) 400 Eos # (Auto) 0 Baso # (Auto) 0 PT 14.3 H INR 1.2 APTT 29 Sodium 139 Potassium 4.8 Chloride 107 Carbon Dioxide 22 BUN 98 H Creatinine 1.81 H Estimated GFR 36 L BUN/Creatinine Ratio 54.1 H Glucose 125 H Calcium 8.9 Magnesium 2.1 Total Bilirubin 0.2 AST 21 ALT 23 Alkaline Phosphatase 36 L Total Creatine Kinase 66 Troponin I 0.017 Total Protein 5.2 L Albumin 2.8 L Globulin 2.4 Albumin/Globulin Ratio 1.2 Lipase 67 SARS-CoV-2 (PCR) Negative Influenza A (RT-PCR) Flu a negative Influenza B (RT-PCR) Flu b negative RSV (PCR) Negative Blood Type O Positive Antibody Screen Negative Crossmatch See Detail 12/06/22 12/07/22 23:26 05:00 WBC RBC Hgb 6.9 L* 7.4 L Hct 20.5 L* 22.6 L MCV MCH MCHC RDW Plt Count Neut % (Auto) Lymph % (Auto) [place] % (Auto) Eos % (Auto) Baso % (Auto) Neut # (Auto) Lymph # (Auto) [place] # (Auto) Eos # (Auto) Baso # (Auto) PT INR APTT Sodium Potassium Chloride Carbon Dioxide BUN Creatinine Estimated GFR BUN/Creatinine Ratio Glucose Calcium Magnesium Total Bilirubin AST ALT Alkaline Phosphatase Total Creatine Kinase 63 Troponin I 0.019 Total Protein Albumin Globulin Albumin/Globulin Ratio Lipase SARS-CoV-2 (PCR) Influenza A (RT-PCR) Influenza B (RT-PCR) RSV (PCR) Blood Type Antibody Screen Crossmatch [facility] Medical History Diabetes Hypertension Social History household members: spouse and family lives independently: Yes Tobacco & Substance Use Smoking Status: Former smoker Assessment & Plan Assessment & Plan narrative: Significant anemia with hem + stool. History suggest upper GI source. Bowel prep still in progress. Plan: EGD and colonoscopy tomorrow when prep is complete. Clear liquids diet until midnight, then NPO Time Spent With Patient Time with patient: less than 30 minutes
--- NOTE | 2022-12-07 12:03 | PC.NURSE ---
Day shift: Off unit for procedure at approx 1200.
--- NOTE | 2022-12-07 12:11 | CM.DANOTE ---
Patient is an 87 yo male who was admitted on 12/07/22 for Weakness/Anemia/GI. Pt has [facility] and [facility] for insurance and his PCP is at the [facility], [place]. EMR was reviewed. Per MD, pt with GI Bleed likely from NSAIDs for arthritis and had one unit of blood so far and scope later today. Per RN, pt taking bowel prep and not yet complete and ready for scope at this time, likely later today but no time set yet. SW met bedside with pt, spouse, and adult son and explained role and pt clearly in discomfort and participated in conversation but brief answers. Spouse is pt's DPOA and they live in [place] and their oldest adult son lives with them and is not working and available for assist as needed. Pt is independent with ADLs at baseline and denies hx of HH or SNF. Pt and spouse hopeful that after scope pt can d/c home soon so that he can rest up and currently do not anticipate any d/c needs but waiting for scope to determine if any further intervention needed. Plan: SW to follow closely for scope later today to determine source of bleed and if any further medical intervention needed. SW to follow to confirm safe plan of home with spouse and son and any further identified discharge planning needs. MADDIE Villeda Discharge Planning/Care Management CM Discharge Assessment Start: 12/07/22 12:08 Freq: Status: Active Protocol: Document 12/07/22 12:08 BF (Rec: 12/07/22 12:11 [id number]) Discharge Planning Assessment Assigned Food Service Kitchen Supervisor MADDIE Moreno DPOA/Assigned Designee Name spouse Mariah Contact Information [phone] Advance Directives? No Advance Directives on File No History Provided By Patient,Family Member, Significant Other,Medical Record Has Patient been admitted in last 30 No days? Prior Living Arrangements House Household Members spouse,family Comment Lives with spouse and their oldest son who is not working Type of transporation used prior to Relies on Others admit Independent with ADL's Yes Is patient alert and oriented? Yes Needs Assistance With Home Chores / Shopping Caregiver for Another No Comment Pending scope results and mobility post procedure Barriers to Discharge No Discharge Plan Home Transportation Arrangement Spouse and son bedside and can transport at d/c Additional Comment Pending scope results and labs Whiteboard Updated in Patient Room with Yes name and ext. # of Food Service Kitchen Supervisor Review Status In Process Please Provide Date Initial DC 12/07/22 Assessment Was Performed Next Review Type Continued Stay Review
--- NOTE | 2022-12-07 12:24 | PC.NURSE ---
Day shift: Back in room at approx 1220. Pt has not been NPO. Has been working on the [employer]. EDG not done at this time.
[2022-12-07] MEDS: ACETAMINOPHEN 325 MG TABLET 650 MG PO (13:09)
[2022-12-07] MEDS: OXYCODONE IR 5 MG TABLET 2.5 MG PO (14:53)
[2022-12-07 22:56] LABS: Mean Corpuscular HGB Conc 33.5 % (30-36); Mean Corpuscular Hemoglobin 30.7 PG (26-34); Mean Corpuscular Volume 91.6 fL (80-100); Platelet Count 89 X10^3/uL (150-400); Red Blood Cell Count 1.97 X10^6/uL (4.5-5.9); Red Cell Distribution Width 16.9 % (11.6-14.8); White Blood Cell Count 7.7 X10^3/uL (4.5-11.0)
[2022-12-07 22:59] LABS: Hematocrit 18.1 % (41-53); Hemoglobin 6.1 g/dL (13.5-17.5)
[2022-12-08] VITALS (23 sets, daily range): BP systolic 103–160; BP diastolic 38–77; PULSE 67–84; RESP 11–20; TEMP 36.1–37.2; O2SAT 96–100; BMI 22.4
--- NOTE | 2022-12-08 | PATH_ITS ---
[facility] Accession Number: [id number] No. of containers..01 Tissue . 01 Material submitted: . colon - ASCENDING COLON POLYP . 01 Diagnosis: Ascending Colon, Polyp: Benign lymphoid aggregate. Additional levels were examined. MRV 12/17/2022 1439 Local . 01 Electronically signed: . Patricia Bowen MD, Pathologist NPI- [id number] . 01 Gross description: . ASCENDING COLON POLYP: Received in formalin is 1 fragment(s) of martinez, soft tissue measuring 0.5 x 0.5 x 0.3 cm submitted entirely in 1 cassette(s) /OCTAVIANO 12/11/2022 1832 Local . 01 Pathologist provided ICD-10: K63.5 . 01 CPT . 493053 Specimen Comment: A courtesy copy of this report has been sent to [phone] Performed at: 01 [facility] [address] [place] [address], [place], [place] [id number] MD Thomas Kang MD Phone: [phone]
[2022-12-08] MEDS: OXYCODONE IR 5 MG TABLET 2.5 MG PO (00:19)
[2022-12-08] MEDS: SODIUM CHLORIDE 0.9% 1,000 ML 100 ML IV (03:08)
[2022-12-08 05:42] LABS: Add Manual Diff / Slide Review NO; Basophils Absolute Auto 0 /uL (0-100); Basophils Percent Auto 0.3 % (0-2); Eosinophils Absolute Auto 200 /uL (0-450); Eosinophils Percent Auto 2.7 % (2-4); Lymphocytes Absolute Auto 1400 /uL (1100-4500); Lymphocytes Percent Auto 18.4 % (25-40); Mean Corpuscular HGB Conc 33.4 % (30-36); Mean Corpuscular Hemoglobin 30.4 PG (26-34); Mean Corpuscular Volume 90.9 fL (80-100); Monocytes Absolute Auto 700 /uL (0-900); Monocytes Percent Auto 9.4 % (3-14); Neutrophils Absolute Auto 5200 /uL (1500-7000); Neutrophils Percent Auto 69.2 % (50-75); Platelet Count 82 X10^3/uL (150-400); Red Blood Cell Count 2.24 X10^6/uL (4.5-5.9); White Blood Cell Count 7.5 X10^3/uL (4.5-11.0)
[2022-12-08 05:47] LABS: Hematocrit 20.4 % (41-53); Hemoglobin 6.8 g/dL (13.5-17.5)
[2022-12-08 05:58] LABS: BUN Creatinine Ratio 56.9 (6-22); Blood Urea Nitrogen 78 mg/dL (9-20); Calcium 8.4 mg/dL (8.4-10.2); Carbon Dioxide 19 mmol/L (22-32); Chloride 116 mmol/L (98-107); Estimated Glomerular Filt Rate 51 mL/min (>60); Glucose 106 mg/dL (80-110); HEMOLYSIS < 15 (0-50); Potassium 4.1 mmol/L (3.4-5.1); Sodium 140 mmol/L (137-145)
--- NOTE | 2022-12-08 08:53 | PM.PREOP ---
Pre-operative Note Interval Note History & Physical reviewed/Exam performed by Physician: Yes Changes to H&P: Yes H&P completed within 30 days and has changed as indicated here:: improved skin color due to blood transfusion
[2022-12-08] MEDS: LACTATED RINGERS 1,000 ML 150 ML IV (09:00)
--- NOTE | 2022-12-08 10:01 | PM.OP.EC ---
Operative Date/Time/Diagnoses Date of procedure: 12/08/22 Time of procedure: 10:01 Pre-op diagnosis: GI bleed Post-op diagnosis: same Procedure & Clinicians Study performed: EGD and colonoscopy with anesthesia Same procedure as scheduled: Yes Indications: GI bleed and severe anemia Surgeon: Alyse Zuleta Procedure Notes Procedure in detail: Preop diagnosis: GI bleed Postop diagnosis: Same Operative procedure: EGD and colonoscopy with hot snare polypectomy of the colon Surgeon: Cherry Zuleta MD Anesthesia: Duke Pelayo MD Findings: Gastric ulcer in the pyloric channel, not actively bleeding. Size is 5 mm by 10 mm. Colon has poor visualization due to retained old blood, small less than 4 mm grossly appearing adenomatous polyps in the ascending and descending colon no large masses. Biopsy taken to confirm that they are indeed adenomatous Procedure: Patient placed in a supine position, anesthetic was provided, scope was inserted into the esophagus and advanced into the stomach. With insufflation I was able to identified the pylorus and intubate into the duodenal. Continued insufflation and extraction of the scope including retroflex and the above findings. He does also have a moderate-sized hiatal hernia Colonoscopy was performed. Rectal exam shows decreased tone no masses. Scope inserted into the rectum advanced to ileocecal valve with minimal difficulty. Insufflation extraction of the scope had the above findings. As stated there is retained old blood from the upper GI bleeding throughout the colon so that the visualization was suboptimal. I could see small, infrequent polyps (less than 3 mm) and chose to sample 1 to confirm they are adenomatous versus hyperplastic. Otherwise no large masses, no bleeding source identified in the colon. Impression: Bleeding source is gastric ulcer. Pathology taken of colonic polyp to determine if it is indeed adenomatous which will give us information on timing of his next screening colonoscopy. No large masses, very poor bowel prep along with active GI bleeding I chose to limit the biopsying of these tiny polyps. Plan: Continue PPI b.i.d. 6-8 weeks. I did not do biopsy for H pylori, but testing should be done to determine if it would be helpful in promoting healing. Moved to ICU until patient is clearly stable. Findings: gastric ulcer and polyp Specimen(s): other (descending colon polyp) Complications: none Post-procedure Recommendations: Colonscopy in 5 years and No ASA/NSAIDS Follow up: as needed Disposition: PACU
--- NOTE | 2022-12-08 11:16 | CM.DPC ---
DCP Cont. Reviewed EMR and team rounds for updates. EGD completed today, large ulcer was found, not actively bleeding. Pt was moved to ICU until he is more stable. Probable d/c home on 12/09. Cont. to monitor any further OP recommendations.
[2022-12-08] MEDS: PANTOPRAZOLE 40 MG VIAL IV ×2 (11:36→20:55)
[2022-12-08] MEDS: SUCRALFATE 1 GM TABLET PO ×2 (11:36→17:22)
[2022-12-08 16:12] LABS: Hematocrit 23.7 % (41-53); Hemoglobin 7.9 g/dL (13.5-17.5)
--- NOTE | 2022-12-08 16:59 | P.PN_ITS ---
Subjective Subjective Interval history: EGD showed small 0.5x1cm but deep pyloric ulcer which was non-bleeding. Small polyp in colon with no evidence of bleeding. Placed on PPI/sucralfate and full liquid diet. Hgb this morning 6.8 so given 1 unit PRBC. Repeat in afternoon 7.9. Exam Vital Signs (past 8 hours): - 12/08/22 09:04 12/08/22 10:02 12/08/22 10:06 Temperature 97.6 F 96.9 F L Pulse Rate 70 84 82 Respiratory Rate 16 18 17 Blood Pressure 130/57 L 103/42 L 116/43 L Pulse Oximetry 99 97 97 Oxygen Delivery Method Room Air Room Air 12/08/22 10:08 12/08/22 10:12 12/08/22 10:13 Temperature 97.3 F L Pulse Rate 79 76 77 Respiratory Rate 17 14 20 Blood Pressure 114/77 118/38 L 118/38 L Pulse Oximetry 98 97 Oxygen Delivery Method Room Air Room Air 12/08/22 11:36 12/08/22 12:07 12/08/22 15:36 Temperature 98.1 F 98.0 F Pulse Rate 80 75 Respiratory Rate 13 16 Blood Pressure 149/67 H 158/72 H Pulse Oximetry 96 100 Oxygen Delivery Method Room Air Oxygen Delivery Method Room Air Oxygen Flow Rate 0 Const General: cooperative and frail appearing Nutritional Appearance: average body habitus HENMT Head: normocephalic and atraumatic Eyes Sclera: sclerae normal Neck Neck: trachea midline Resp Effort & Inspection: normal respiratory effort and able to speak in complete sentences Cardio Rate: regular rate Rhythm: regular rhythm GI Inspection: no obesity Palpation: soft and No guarding Skin General: atrophy Neuro General: patient alert, patient awake and patient oriented x3 Cognition: normal cognition Psych Mental Status: mental status grossly normal Judgment: judgment good Objective Labs 12/08/22 16:05 12/08/22 05:30 Labs: Laboratory Results - last 24 hr 12/06/22 12/07/22 12/08/22 23:21 22:40 05:30 WBC 7.7 7.5 RBC 1.97 L 2.24 L Hgb 6.1 L* 6.8 L* Hct 18.1 L* 20.4 L* MCV 91.6 90.9 MCH 30.7 30.4 MCHC 33.5 33.4 RDW 16.9 H 16.0 H Plt Count 89 L 82 L Neut % (Auto) 69.2 Lymph % (Auto) 18.4 L [place]abella % (Auto) 9.4 Eos % (Auto) 2.7 Baso % (Auto) 0.3 Neut # (Auto) 5200 Lymph # (Auto) 1400 Isabella # (Auto) 700 Eos # (Auto) 200 Baso # (Auto) 0 Sodium 140 Potassium 4.1 Chloride 116 H Carbon Dioxide 19 L BUN 78 H Creatinine 1.37 H Estimated GFR 51 L BUN/Creatinine Ratio 56.9 H Glucose 106 Calcium 8.4 Blood Type O Positive Antibody Screen Negative Crossmatch See Detail 12/08/22 16:05 WBC RBC Hgb 7.9 L Hct 23.7 L MCV MCH MCHC RDW Plt Count Neut % (Auto) Lymph % (Auto) [place] % (Auto) Eos % (Auto) Baso % (Auto) Neut # (Auto) Lymph # (Auto) [place] # (Auto) Eos # (Auto) Baso # (Auto) Sodium Potassium Chloride Carbon Dioxide BUN Creatinine Estimated GFR BUN/Creatinine Ratio Glucose Calcium Blood Type Antibody Screen Crossmatch [facility] Medical History Diabetes Hypertension Social History household members: spouse and family lives independently: Yes Smoking Status: Former smoker Assessment & Plan Assessment and plan (1) Anemia: Status: Acute Plan: Acute blood loss anemia 2/2 gastric ulcer from chronic naproxen use -Blood transfusion given with PRBC to keep hemoglobin over 7, type and cross -Hgb improved to 7.4 from 6.9 -dropped to 6.8 on 12/08 and now 7.9 after another unit (2) Acute upper GI bleed: Status: Acute Plan: Due to chronic naproxen use for years, with deep gastric ulcer in pylorus on EGD. Colonoscopy negative except for small polyp. Full liquids today, then advance diet tomorrow Protonix 40 mg IV twice daily Monitor H&H Hold aspirin and any NSAID Sucralfate q6h (3) Hypertension: Status: Acute Plan: Hold any antihypertension medications for now Plan Dispo: Home on 12/09. Time Spent With Patient Time with patient: 50 to 69 minutes with 50% spent counseling/coordinating care Quality VTE Deep Vein Thrombosis/Pulmonary Embolism Present on Admission: No
--- NOTE | 2022-12-08 18:36 | PC.NURSE ---
Pt H/H up to 7.9/23.7 with afternoon draw. Provider aware. Pt has tender abdomen to palpitation, passing gas, stable VS.
[2022-12-08] MEDS: ATORVASTATIN 20 MG TABLET 40 MG PO (20:55)
[2022-12-08] MEDS: PRAZOSIN 1 MG CAPSULE 4 MG PO (20:56)
[2022-12-09] MEDS: SUCRALFATE 1 GM TABLET PO ×3 (00:07→12:41)
[2022-12-09 00:12] VITALS: BP 125/58; PULSE 73; PULSE 75; O2SAT 100; O2SAT 96
[2022-12-09 04:00] VITALS: BP 135/63; PULSE 72; RESP 16; TEMP 36.9; O2SAT 96
--- NOTE | 2022-12-09 06:47 | PC.NURSE ---
0630- Patient has not slept much tonight. Patient states he has abdominal pain with movement but is refusing pain medication. Patient advised to try to splint his abdomen and if this does not decrease his discomfort he needs to consider taking his pain medication. Will monitor.
[2022-12-09 08:00] VITALS: BP 148/68; PULSE 69; RESP 16; TEMP 36.8; O2SAT 99
[2022-12-09 08:24] LABS: Add Manual Diff / Slide Review NO; Basophils Absolute Auto 0 /uL (0-100); Basophils Percent Auto 0.2 % (0-2); Eosinophils Absolute Auto 300 /uL (0-450); Eosinophils Percent Auto 5.2 % (2-4); Hemoglobin 7.4 g/dL (13.5-17.5); Lymphocytes Absolute Auto 1000 /uL (1100-4500); Mean Corpuscular HGB Conc 33.7 % (30-36); Mean Corpuscular Hemoglobin 30.3 PG (26-34); Mean Corpuscular Volume 89.9 fL (80-100); Monocytes Absolute Auto 500 /uL (0-900); Monocytes Percent Auto 8.9 % (3-14); Neutrophils Absolute Auto 3600 /uL (1500-7000); Neutrophils Percent Auto 66.7 % (50-75); Platelet Count 75 X10^3/uL (150-400); Red Blood Cell Count 2.45 X10^6/uL (4.5-5.9); White Blood Cell Count 5.4 X10^3/uL (4.5-11.0)
[2022-12-09 08:39] LABS: BUN Creatinine Ratio 28.7 (6-22); Blood Urea Nitrogen 33 mg/dL (9-20); Calcium 8.9 mg/dL (8.4-10.2); Carbon Dioxide 27 mmol/L (22-32); Chloride 113 mmol/L (98-107); Estimated Glomerular Filt Rate > 60 mL/min (>60); Glucose 105 mg/dL (80-110); HEMOLYSIS < 15 (0-50); Potassium 4.1 mmol/L (3.4-5.1); Sodium 140 mmol/L (137-145)
[2022-12-09] MEDS: PANTOPRAZOLE 40 MG VIAL IV (09:08)
[2022-12-09 12:00] VITALS: BP 152/67; PULSE 65; RESP 16; TEMP 36.7; O2SAT 99
[2022-12-09 14:10] LABS: Hemoglobin 7.5 g/dL (13.5-17.5)
--- NOTE | 2022-12-09 15:03 | PM.DS.1 ---
History of Present Illness History of Present Illness Chief complaint: general malaise 24 hours Narrative: 87 years old male with history of hypertension, hyperlipidemia, CAD, osteoarthritis presented to the ER with generalized weakness and fatigue in the last 2 days. The patient was in the bathroom when he felt very lightheaded but did not fall. The patient denies any chest pain, palpitations or any injury. Denies any hematemesis, melena, fever, shortness of breath. He reports some black color stools on and off for the last several weeks. Take baby aspirin. Denies any alcohol but does use NSAIDs on regular basis for chronic muscle and joint pain. Reports colonoscopy 5 years ago but never had any EGD. In the ER he was found to be quite anemic with guaiac positive. Surgery was contacted and recommended keep the patient n.p.o. and prep for colonoscopy and EGD in the morning. Laboratory shows H&H 6.9 and 20.5, platelets 102, WBC 6.1, creatinine 1.81, blood sugar 125, chest x-ray unremarkable. Discharge Providers Provider Date of admission: 12/07/22 00:21 Discharge Date: 12/09/22 Consults: 12/07/22 00:10 Consult to General Surgery Stat Comment: Consulting Provider: Alyse Zuleta Reason for consultation: upper GI bleed Has provider been notified: Yes Discharge provider: Joe Madera DO Summary Hospital Course Discharge Diagnosis: (1) Anemia: Status: Acute Plan: Acute blood loss anemia 2/2 gastric ulcer from chronic naproxen use -Blood transfusion given with PRBC to keep hemoglobin over 7, type and cross -Hgb improved to 7.4 from 6.9 -dropped to 6.8 on 12/08 and now 7.9 after another unit -stable at 7.5 on discharge (2) Acute upper GI bleed: Status: Acute Plan: Due to chronic naproxen use for years, with deep gastric ulcer in pylorus on EGD. Colonoscopy negative except for small polyp. Full liquids then advanced to solids without issue Protonix 40 mg IV twice daily, discharged on po protonix 40mg BID x4 weeks Monitor H&H Hold aspirin and any NSAID Sucralfate q6h x4 weeks (3) Hypertension: Status: Acute Plan: Hold any antihypertension medications for now Hospital Course: Admitted for melena from chronic NSAID use and found to have deep gastric ulcer which had stopped bleeding. Put on protonix and sucralfate and bleeding stopped. Hgb was stable. Counseled to avoid NSAIDs and only take tylenol. Discharged on po protonix and sucralfate x4 weeks. BP meds resumed on discharge. Exam Vital Signs (past 8 hours): - 12/09/22 08:00 12/09/22 10:00 12/09/22 12:00 Temperature 98.3 F 98.1 F Pulse Rate 69 65 Respiratory Rate 16 16 Blood Pressure 148/68 H 152/67 H Pulse Oximetry 99 99 Oxygen Delivery Method Room Air Oxygen Flow Rate 0 0 Oxygen Delivery Method Room Air Oxygen Flow Rate 0 Const General: cooperative and frail appearing Nutritional Appearance: average body habitus HENMT Head: normocephalic and atraumatic Eyes Sclera: sclerae normal Neck Neck: trachea midline Resp Effort & Inspection: normal respiratory effort and able to speak in complete sentences Cardio Rate: regular rate Rhythm: regular rhythm GI Inspection: no obesity Palpation: soft and No guarding Skin General: atrophy Neuro General: patient alert, patient awake and patient oriented x3 Cognition: normal cognition Psych Mental Status: mental status grossly normal Judgment: judgment good Objective Labs 12/09/22 11:40 12/09/22 08:18 Labs: Laboratory Results - last 24 hr 12/08/22 12/09/22 12/09/22 16:05 08:18 11:40 WBC 5.4 RBC 2.45 L Hgb 7.9 L 7.4 L 7.5 L Hct 23.7 L 22.0 L MCV 89.9 MCH 30.3 MCHC 33.7 RDW 16.0 H Plt Count 75 L Neut % (Auto) 66.7 Lymph % (Auto) 19.0 L [place] % (Auto) 8.9 Eos % (Auto) 5.2 H Baso % (Auto) 0.2 Neut # (Auto) 3600 Lymph # (Auto) 1000 L [place] # (Auto) 500 Eos # (Auto) 300 Baso # (Auto) 0 Sodium 140 Potassium 4.1 Chloride 113 H Carbon Dioxide 27 BUN 33 H Creatinine 1.15 Estimated GFR > 60 BUN/Creatinine Ratio 28.7 H Glucose 105 Calcium 8.9 PFSH Medical History Diabetes Hypertension Social History household members: spouse and family lives independently: Yes Smoking Status: Former smoker Discharge Plan Discharge Plan Patient Disposition: Home Provider Discharge Comment: You were admitted for a GI bleed from a gastric ulcer. This was caused by taking naproxen for years. The bleeding has now stopped and you will be on 4 weeks of medication to help heal the ulcer. You should also have your PCP do testing for H. pylori with a stool test. This is a bacteria which can cause ulcers. NEVER take naproxen, ibuprofen, meloxicam, motrin, aleve, or advil as these can all cause ulcers. You may take tylenol up to 1000mg 3x per day. Discharge orders & Medications Prescriptions: New sucralfate 1 gram Tablet 1 g PO Q6HR 28 Days Qty: 64 0RF pantoprazole [Protonix] 40 mg tablet,delayed release (DR/EC) 40 mg PO BID 28 Days Qty: 56 0RF Continued cyclobenzaprine 10 mg Tablet 10 mg PO TID PRN (Reason: Muscle Spasm) atorvastatin 40 mg Tablet 40 mg PO DAILY amlodipine 10 mg Tablet 10 mg PO DAILY lisinopril 10 mg Tablet 10 mg PO DAILY docusate sodium 250 mg Capsule 250 mg PO DAILY prazosin 2 mg Capsule 4 mg PO BEDTIME melatonin 3 mg Capsule 3 mg PO BEDTIME PRN (Reason: Sleep) Discontinued naproxen 250 mg Tablet 250 mg PO BID PRN (Reason: pain) Rx Instructions: with meals aspirin 81 mg Tablet,Chewable 81 mg PO DAILY Visit Report/Discharge Packet Instructions: Nonsteroidal Anti-inflammatory Drugs (Alternative Therapy), DI for Gastritis, DI for Gastric Ulcer, Helicobacter Pylori Infection, Gastrointestinal Bleeding, Pantoprazole, Sucralfate (By mouth) Stand Alone Forms: Patient Portal/API, Stroke Signs & Symptoms, Colonoscopy Result: [facility], Colonoscopy Result: [facility], EGD Result: [facility], EGD Result: [facility] Quality VTE Deep Vein Thrombosis/Pulmonary Embolism Present on Admission: No
--- NOTE | 2022-12-09 16:38 | PC.NURSE ---
Discharge: Pt A@Ox4, family at bedside and active participants. Discharge instructions provided regarding follow up, new medications, stopping all NSAIDs to prevent recurrent GI bleed, fall prevention, and stroke s/s. Pt wheeled via WC to private family vehicle by this RN at approximately 1600
== END 2022-12-09 16:00 | disposition home or self-care (01) | DRG 378 ==
LOC: ED 12-07 00:08 → AC 12-07 00:23 → ICU 12-08 11:03
PROVIDERS: Student in an Organized Health Care Education/Training Program; Surgery; Admitting Provider Internal Medicine; Emergency Provider Emergency Medicine; Referring Provider Emergency Medicine; Visit Provider Internal Medicine
PROC: 0DJ08ZZ Inspection of Upper Intestinal Tract, Via Natural or Artificial Opening Endoscopic (ICD-10-PCS; CPT 43235; principal; 2022-12-08 09:00)
PROC: 0DJD8ZZ Inspection of Lower Intestinal Tract, Via Natural or Artificial Opening Endoscopic (ICD-10-PCS; CPT 45378; 2022-12-08 09:00)
DX: K25.4 Chronic or unspecified gastric ulcer with hemorrhage (principal); D62 Acute posthemorrhagic anemia; D12.2 Benign neoplasm of ascending colon; D12.4 Benign neoplasm of descending colon; T39.315A Adverse effect of propionic acid derivatives, initial encounter; I10 Essential (primary) hypertension; Z79.1 Long term (current) use of non-steroidal anti-inflammatories (NSAID); Z87.891 Personal history of nicotine dependence
CPT/HCPCS: 0241U; 36415; 36430; 43239; 45385; 71045; 80048; 80053; 82272; 82550; 83690; 83735; 84484; 85014; 85018; 85025; 85027; 85610; 85730; 86850; 86900; 86901; 93005; 93010; 96374; 99232; 99285; P9016; C9113

== ENCOUNTER 2024-07-07 15:28 | Emergency (ER) | payer OTHER, SELFPAY ==
[2022-12-07 02:49] VITALS: BMI 22.9
[2024-07-07 15:40] VITALS: BP 130/62; PULSE 75; RESP 14; TEMP 36.3; O2SAT 97; BMI 24.3
--- NOTE | 2024-07-07 15:44 | DI.RAD.S_ITS ---
PROCEDURE: XR KNEE LT 3V INDICATIONS: knee pain after fall TECHNIQUE: 3 views of the knee were acquired. COMPARISON: None. FINDINGS: Bones: No fractures or dislocations. No suspicious bony lesions. Moderate tricompartmental degenerative changes of the left knee. Soft tissues: Small joint effusion. No suspicious soft tissue calcifications. IMPRESSION: Left knee without acute fracture or dislocation. Moderate tricompartmental osteoarthrosis of the left knee with small knee joint effusion. If there is persistent clinical concern for occult fracture given adequate mechanism of injury, consider repeat imaging in 10-14 days. Immobilization as clinically indicated. Dictated by: Toan Werner M.D. on 07/07/2024 at 17:31 Approved by: Toan Werner M.D. on 07/07/2024 at 17:32
--- NOTE | 2024-07-07 16:57 | DI.CT.S_ITS ---
PROCEDURE: CT HEAD/BRAIN WO CON INDICATIONS: fall; hit head TECHNIQUE: Noncontrast 4.5 mm thick angled axial sections acquired from the foramen magnum to the vertex, with coronal and sagittal reformats. For radiation dose reduction, the following was used: automated exposure control, adjustment of mA and/or kV according to patient size. COMPARISON: [facility], CT, CT HEAD/BRAIN WO CON, 03/31/2019, 7:54. FINDINGS: Image quality: Diagnostic. CSF spaces: Basal cisterns are patent. No extra-axial fluid collections. The ventricles are symmetric in size and shape. Brain: No acute intracranial hemorrhage or mass effect. There is cerebral volume loss, with resultant ventricular and sulcal prominence. There are periventricular and deep white matter chronic small vessel ischemic changes. There is intracranial internal carotid artery atherosclerosis. Skull and face: Calvarium and visualized facial bones appear intact, without suspicious lesions. Sinuses: Visualized sinuses and mastoids are clear. IMPRESSION: No acute intracranial pathology. Approved by: Serg Leija M.D. on 07/07/2024 at 17:09
--- NOTE | 2024-07-07 17:10 | PC.NURSE ---
Patient presents to the ED with family reporting a fall at 1330 this afternoon when entering [employer]. Reports tripping over step and landing face forward on the hard wood floor. Reports leg pain, headache and neck pain. Fall was witnessed by . Denies loss of consciousness, visual disturbances or shortness of breath.
--- NOTE | 2024-07-07 17:27 | DI.CT.S_ITS ---
PROCEDURE: CT CERVICAL SPINE WO CON INDICATIONS: fall; hit head TECHNIQUE: Noncontrast 3 mm thick sections acquired from the skull base to the T4 level. Sagittal and coronal reformats were then constructed. For radiation dose reduction, the following was used: automated exposure control, adjustment of mA and/or kV according to patient size. COMPARISON: None. FINDINGS: Image quality: Excellent. Bones: No acute fractures or dislocations. Visualized superior ribs are intact. Multilevel disc space narrowing and degenerative endplate changes. Multilevel uncovertebral joint and facet hypertrophy. Soft tissues: Prevertebral soft tissues are normal in thickness. No paravertebral hematomas. No apical pneumothoraces. IMPRESSION: 1. No acute displaced fracture or traumatic subluxation. 2. Moderate to severe multilevel cervical spondylosis. Approved by: Serg Leija M.D. on 07/07/2024 at 17:11
--- NOTE | 2024-07-07 18:21 | ED_ITS ---
<Statement entered by Jon Parsons DO - 07/07/24 19:59> Dr. Parsons: I was immediately available in the department for consultation. I did not actually see the patient. HPI - Fall General Chief Complaint: Fall Stated Complaint: Fall, left knee and forehead pain Time Seen by Provider: 07/07/24 16:18 Source: patient Mode of arrival: Ambulatory History of Present Illness HPI Narrative: 88-year-old male presents to the ED status post a mechanical fall sustained just prior to arrival. Patient had gone to pay some bills, tripped and fell hitting his head and left knee on the laminate floor. No loss of consciousness. Not on blood thinners. Patient complains of some tenderness to the left brow bone and some neck pain.. No changes to vision. Patient is not complaining of any knee pain. Patient is able to bear weight and walk. Related Data Home Medications Medication Instructions Recorded Confirmed amlodipine 10 mg tablet 10 mg PO DAILY 03/31/19 12/07/22 atorvastatin 40 mg tablet 40 mg PO DAILY 03/31/19 12/07/22 cyclobenzaprine 10 mg tablet 10 mg PO TID PRN Muscle Spasm 03/31/19 12/07/22 docusate sodium 250 mg capsule 250 mg PO DAILY 03/31/19 12/07/22 lisinopril 10 mg tablet 10 mg PO DAILY 03/31/19 12/07/22 melatonin 3 mg capsule 3 mg PO BEDTIME PRN Sleep 03/31/19 12/07/22 prazosin 2 mg capsule 4 mg PO BEDTIME 03/31/19 12/07/22 Allergies Allergy/AdvReac Type Severity Reaction Status Date / Time No Known Drug Allergies Allergy Verified 07/07/24 15:40 Review of Systems Constitutional Constitutional: Denies chills, Denies fatigue, Denies fever(s), Denies frequent falls, Denies lethargy and Denies weakness Eyes Eyes: Denies change in vision, Denies eye discharge, Denies irritation and Denies loss of vision ENT Ears, Nose, Mouth, and Throat: Denies change in voice, Denies dizziness, Reports facial pain, Reports neck pain, Denies sore throat and Denies throat swelling Cardiovascular Cardiovascular: Denies chest pain, Denies irregular heart rhythm, Denies lightheadedness, Denies palpitations, Denies dyspnea, Denies dyspnea on exertion and Denies orthopnea Respiratory Respiratory: Denies cough, Denies dyspnea, Denies dyspnea on exertion and Denies wheezing Gastrointestinal Gastrointestinal: Denies abdominal pain, Denies change in bowel habits, Denies diarrhea, Denies nausea and Denies vomiting Musculoskeletal Musculoskeletal: Reports neck pain and Denies numbness Integumentary/Breasts Skin/Breast: Denies pruritus, Denies erythema, Denies rash and Denies wounds Neurologic Neurologic: Denies behavioral changes, Denies confusion, Denies dizziness, Denies frequent falls, Denies loss of vision, Denies numbness and Denies weakness Psychiatric Psychiatric: Denies anxiety, Denies behavioral changes, Denies confusion, Denies depression, Denies homicidal ideation and Denies suicidal ideation Endocrine Endocrine: Denies fatigue, Denies flushing and Denies palpitations Hematologic/Lymphatic Hematologic/Lymphatic: Denies easy bruising Allergic/Immunologic Allergic/Immunologic: Denies urticaria, Denies throat swelling and Denies wheezing Patient History Medical History Diabetes Hypertension Social History household members: spouse and family lives independently: Yes Smoking Status: Unknown if ever smoked Smoking Status: Unknown if ever smoked alcohol intake frequency: 0-2 drinks per day Exam Narrative Exam Narrative: Const General:?cooperative, healthy appearing and comfortable [facility] Head:?normal to inspection Ears:?hearing grossly normal bilaterally Nose:?external nose normal Face and sinus:?normal facial exam and sinuses nontender Mouth:?oral mucosae normal Throat:?posterior oropharynx normal Eyes General:?appearance normal, both eyes and all related structures; vision grossly normal Neck Neck:?normal visual inspection and no lymphadenopathy noted Resp Effort & Inspection:?normal respiratory effort Auscultation:?clear to auscultation bilaterally Cardio Rate:?regular rate Rhythm:?regular rhythm Musculoskeletal There is some tenderness to palpation in the midline cervical region. There is full range of motion. There is mild swelling of the left brow bone, no hematoma. Strength and sensation is intact. Neurovascularly intact. Patient is able to bear weight and walk. No tenderness to palpation of the L knee. Neuro General:?patient alert, patient awake and patient oriented x3 Initial Vital Signs Initial Vital Signs: Vital Signs Temperature 97.3 F L 07/07/24 15:40 Pulse Rate 75 07/07/24 15:40 Respiratory Rate 14 07/07/24 15:40 Blood Pressure 130/62 07/07/24 15:40 Pulse Oximetry 97 07/07/24 15:40 Oxygen Delivery Method Room Air 07/07/24 15:40 Course Orders Ordered: ED Orders 07/07/24 15:44 XR knee LT 3V Stat 07/07/24 16:57 CT head/brain wo con Stat 07/07/24 17:27 CT cervical spine wo con Stat Discontinued Medications Acetaminophen (Acetaminophen 325 Mg Tablet) 975 mg PO NOW ONE Stop: 07/07/24 18:19 Vital Signs Vital signs: Vital Signs - 8 hr 07/07/24 15:40 Temperature 97.3 F L Pulse Rate 75 Respiratory Rate 14 Blood Pressure 130/62 Pulse Oximetry 97 Oxygen Delivery Method Room Air MDM - Fall MDM Narrative Medical decision making narrative: 88-year-old male presents to the ED status post a mechanical fall sustained just prior to arrival. Concern for intracranial injury versus fracture/dislocation versus musculoskeletal sprain/strain versus other. CT head and CT C-spine were obtained which were without acute findings. X-ray of the left knee was also without acute findings. Patient's neck pain likely due to a whiplash injury from the head strike. Patient given Tylenol in the ED today. Recommend supportive care with Tylenol, monitoring. Recommend follow-up with PCP as soon as possible. ED return precautions discussed with patient. Patient verbalized understanding. Medical records reviewed: Yes Discharge Plan Departure Patient Disposition: Home Clinical Impression: Fall Qualifiers: Encounter type: initial encounter Qualified Code(s): W19.XXXA - Unspecified fall, initial encounter Instructions: How to Prevent Falls Activity Restrictions/Additional Instructions: You were evaluated in the ED today for a fall. Your knee x-ray, CT scan of the head and neck were all normal. It appears that you might have a whiplash injury to your neck due to striking your head. You were given some Tylenol in the ED today. You may continue to take 1000 mg of Tylenol every 8 hours for pain. Please follow-up with your PCP as soon as possible. Return to the ED if you experience any worsening symptoms. Prescriptions: No Action cyclobenzaprine 10 mg Tablet 10 mg PO TID PRN (Reason: Muscle Spasm) atorvastatin 40 mg Tablet 40 mg PO DAILY amlodipine 10 mg Tablet 10 mg PO DAILY lisinopril 10 mg Tablet 10 mg PO DAILY docusate sodium 250 mg Capsule 250 mg PO DAILY prazosin 2 mg Capsule 4 mg PO BEDTIME melatonin 3 mg Capsule 3 mg PO BEDTIME PRN (Reason: Sleep) Stand Alone Forms: Patient Portal/API/Survey
[2024-07-07 18:35] VITALS: TEMP 36.7
[2024-07-07] MEDS: ACETAMINOPHEN 325 MG TABLET 975 MG PO (18:35)
[2024-07-07 18:41] VITALS: BP 130/62; PULSE 66; RESP 16; TEMP 36.7; O2SAT 99
== END 2024-07-07 18:46 | disposition home or self-care (01) ==
PROVIDERS: Emergency Provider Student in an Organized Health Care Education/Training Program
DX: S09.90XA Unspecified injury of head, initial encounter (principal); M25.562 Pain in left knee; M54.2 Cervicalgia; W01.0XXA Fall on same level from slipping, tripping and stumbling without subsequent striking against object, initial encounter
CPT/HCPCS: 70450; 72125; 73562; 99284